=== PATIENT | female | born 1995 | race Caucasian/White ===

== ENCOUNTER 2018-10-12 12:10 | Emergency (ER) | payer OTHER, MEDICAID ==
[2018-10-12 14:23] LABS: URINE BLOOD (Dip) POC 3+ (NEGATIVE); URINE GLUCOSE (Dip) POC Negative (NEGATIVE); URINE KETONES (Dip) POC 1+ (NEGATIVE); URINE LEUKOCYTE EST (Dip) POC 3+ (NEGATIVE); URINE NITRITE (Dip) POC Negative (NEGATIVE); URINE TOTAL PROTEIN POC 1+ (NEGATIVE)
[2018-10-12 14:23] LABS: URINE PH (Dip) POC 6.5 (5.0-8.5)
== END 2018-10-12 14:41 | disposition home or self-care (01) ==
LOC: FTE 12:10
DX: H10.9 Unspecified conjunctivitis (principal); B00.9 Herpesviral infection, unspecified; N39.0 Urinary tract infection, site not specified
CPT/HCPCS: 81003; 81025; 99283